=== PATIENT | female | born 1950 | race African-American/Black ===

== ENCOUNTER 2017-11-11 14:59 | Outpatient (CLI) | payer MEDICARE | END 2017-11-11 15:00 | disposition home or self-care (01) | LOC: BICMAMMO 14:59 | PROVIDERS: ATTEND Internal Medicine | DX: Z12.31 Encounter for screening mammogram for malignant neoplasm of breast (principal); Z13.820 Encounter for screening for osteoporosis; Z80.3 Family history of malignant neoplasm of breast | CPT/HCPCS: 77063; 77067; 77080 ==

== ENCOUNTER 2019-01-07 20:39 | Emergency (ER) | payer MEDICARE ==
--- NOTE | 2019-01-07 21:29 | RAD ---
XR Knee Rt 4 View STANDARD HISTORY: Right knee pain. No injury. COMPARISON: None. FINDINGS: There are moderate arthritic changes in the with moderate medial and lateral compartment na rrowing and small patellofemoral spurs. No joint effusion or fracture. IMPRESSION: Moderate arthritic changes of the knee.
== END 2019-01-07 21:36 | disposition home or self-care (01) ==
LOC: ERS 20:39
DX: M25.561 Pain in right knee (principal); Z71.6 Tobacco abuse counseling; Z87.891 Personal history of nicotine dependence
CPT/HCPCS: 99406

== ENCOUNTER 2020-08-01 12:44 | Outpatient (CLI) | payer MEDICARE | END 2020-08-01 12:45 | disposition home or self-care (01) | LOC: BICMAMMO 12:44 | PROVIDERS: ATTEND Internal Medicine | DX: Z12.31 Encounter for screening mammogram for malignant neoplasm of breast (principal); Z13.820 Encounter for screening for osteoporosis; Z80.3 Family history of malignant neoplasm of breast | CPT/HCPCS: 77063; 77067; 77080 ==

== ENCOUNTER 2022-09-23 11:43 | Outpatient (CLI) | payer MEDICARE, OTHER | END 2022-09-23 11:44 | disposition home or self-care (01) | LOC: BICRAD 11:43 | PROVIDERS: ATTEND Internal Medicine | DX: R09.81 Nasal congestion (principal); R50.9 Fever, unspecified; R05.9 Cough, unspecified | CPT/HCPCS: 70220; 71046 ==